=== PATIENT | female | born 1945 | race Caucasian/White ===

== ENCOUNTER → 2017-01-29 | Outpatient (CLI) | payer OTHER | LOC: BMCIMAGING 08:44 | PROVIDERS: ATTEND Internal Medicine | DX: Z12.31 Encounter for screening mammogram for malignant neoplasm of breast (principal) | CPT/HCPCS: G0202 ==

== ENCOUNTER → 2017-06-27 | Outpatient (CLI) | payer OTHER | LOC: FIMAGING 14:27 | PROVIDERS: ATTEND Internal Medicine | DX: M50.321 Other cervical disc degeneration at C4-C5 level (principal); M46.92 Unspecified inflammatory spondylopathy, cervical region; M48.02 Spinal stenosis, cervical region; M48.03 Spinal stenosis, cervicothoracic region; M51.34 Other intervertebral disc degeneration, thoracic region; M46.94 Unspecified inflammatory spondylopathy, thoracic region; M48.04 Spinal stenosis, thoracic region ==

== ENCOUNTER 2017-07-05 14:04 | Day surgery (SDC) | payer OTHER ==
[2017-07-05] MEDS ORDERED: LIDOCAINE 1% 2 ML INJ ID PRN (14:22)
[2017-07-05] MEDS ORDERED: LR 1,000 ML IV ONE (14:22)
[2017-07-05] MEDS ORDERED: BUPIVACAINE 0.25% 30 ML SDV ONE (15:15)
[2017-07-05] MEDS ORDERED: BACITRACIN ZINC 14.2 GM OINTTUBE TP ONE (15:16)
[2017-07-05] MEDS ORDERED: MIDAZOLAM 2 MG/2 ML VIAL IVP ONE (15:32)
--- NOTE | 2017-07-05 15:35 | PDANEPAE ---
ANE History of Present Illness 71 yo for temperal art bx ANE Past Medical History - Cardiovascular History Hx Hypertension: No Hx Arrhythmias: No Hx Chest Pain: No Hx Coronary Artery / Peripheral Vascular Disease: No Hx CHF / Valvular Disease: No Hx Palpitations: No - Pulmonary History Hx COPD: No Hx Asthma/Reactive Airway Disease: No Hx Recent Upper Respiratory Infection: No Hx Oxygen in Use at Home: No Hx Sleep Apnea: Yes Sleep Apnea Screening Result - Last Documented: Positive - Neurologic History Hx Cerebrovascular Accident: No Hx Seizures: No Hx Dementia: No - Endocrine History Hx Diabetes: No - Renal History Hx Renal Disorders: No - Liver History Hx Hepatic Disorders: No - Neurological & Psychiatric Hx Hx Neurological and Psychiatric Disorders: No - Cancer History Hx Cancer: No - Congenital Disorder History Hx Congenital Disorders: No - GI History Hx Gastrointestinal Disorders: No - Other Health History Other Health History: NA - Chronic Pain History Chronic Pain: No - Surgical History Prior Surgeries: L cataract 2017. L meniscus repair 2009. R cataract 2010. Appendectomy as child ANE Review of Systems Review of Systems: - Exercise capacity METS (RN): 4 METS ANE Patient History - Allergies Allergies/Adverse Reactions: No Known Allergies Allergy (Unverified 07/05/17 14:36) - Home Medications Home medications: home medication list seen and reviewed Home Medications: Aspirin 81mg (*) 07/05/17 [Last Taken 07/04/17] Atorvastatin Calcium 07/05/17 [Last Taken 07/03/17] Flexeril 07/05/17 [Last Taken 07/04/17] Gabapentin 07/05/17 [Last Taken 07/05/17] Prednisone 07/05/17 [Last Taken 07/05/17] buPROPion 07/05/17 [Last Taken 07/04/17] - NPO status NPO Status: no food or drink >8 hours NPO Since - Liquids (Date): 07/05/17 NPO Since - Liquids (Time): 06:00 NPO Since - Solids (Date): 07/04/17 NPO Since - Solids (Time): 18:00 - Anes Hx Anes Hx: no prior problems - Smoking Hx Smoking Status: Never smoked - Family Anes Hx Family Hx Anesthesia Complications: NA ANE Labs/Vital Signs - Vital Signs Blood Pressure: 150/95 Heart Rate: 76 Respiratory Rate: 16 O2 Sat (%): 94 Height: 5 ft 3 in Weight: 68.039 kg ANE Physical Exam - Airway Neck exam: FROM Mallampati Score: Class 2 Mouth exam: normal dental/mouth exam - Pulmonary Pulmonary: no respiratory distress - Cardiovascular Cardiovascular: regular rate and rhythym - ASA Status ASA Status: II ANE Anesthesia Plan Anesthesia Plan: GA w LMA
[2017-07-05] MEDS ORDERED: PROPOFOL/EMULSION 500 MG/50 ML BOTTLE IV ONE (15:53)
--- NOTE | 2017-07-05 15:53 | PDHPUP ---
History & Physical Update H&P update statement: This history and physical update is based on an assessment of the patient which was completed after admission or registration (within 24 hours), but prior to the surgery/procedure. H&P update: H&P reviewed & patient examined, no change in patient's condition since H&P completed
[2017-07-05] MEDS ORDERED: fentaNYL 100 MCG/2 ML INJ ONE (15:56)
[2017-07-05] MEDS ORDERED: fentaNYL 100 MCG/2 ML INJ IVP PRN (17:12)
[2017-07-05] MEDS ORDERED: NALOXONE HCL 0.4 MG/ML INJ IVP PRN (17:12)
[2017-07-05] MEDS ORDERED: HYDROCODONE/APAP 5/325 TAB PO PRN (17:12)
[2017-07-05] MEDS ORDERED: OXYCODONE/APAP 5/325 TAB PO PRN (17:12)
--- NOTE | 2017-07-05 17:12 | POSTOPPROG ---
Post Op Note Date of Operation: 07/05/17 Surgeon: Gary Urbina Anesthesia: GET(General Endotracheal) Pre-op Diagnosis: Headache Post-op Diagnosis: Headache Indication: Headache Procedure: Left temporal artery biopsy Findings: Left temporal artery Inf/Abcess present in the surg proc area at time of surgery?: No Depth: Deep Incisional (Fascial) EBL: Minimal Complications: NONE Specimen(s): NONE
--- NOTE | 2017-07-05 17:13 | POSTANESTH ---
Post Anesthetic Evaluation Cardiovascular Status: Normal, Stable Respiratory Status: Normal, Stable Level of Consciousness/Mental Status: Can Participate in Eval Pain Control: Adequate, Prn Tx Ordered Nausea/Vomiting Control: Adequate, Prn Tx Ordered Complications Possibly Related to Anesthesia: None Noted
[2017-07-05 17:51] VITALS: BP 149/75; PULSE 65; RESP 16; TEMP 97.7; O2SAT 97
--- NOTE | 2017-07-06 03:37 | GOP ---
[f rep st] OPERATIVE REPORT DATE OF OPERATION: 07/05/2017 SURGEON: Gary Urbina MD ANESTHESIA: General. PREOPERATIVE DIAGNOSIS: Headache. POSTOPERATIVE DIAGNOSIS: Headache. PROCEDURE PERFORMED: Left temporal artery biopsy. FINDINGS: Left temporal vessels, unremarkable. SPECIMENS: Two temporal vessels, temporal artery #1 consistent with artery. ESTIMATED BLOOD LOSS: Minimal. 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 In order to achieve a definitive diagnosis, she was determined to be an appropriate candidate for the above-stated procedure. The risks, benefits , and alternatives to the procedure were explained at length to the patient, who stated she understood and wished to go forward with the procedure. DESCRIPTION OF PROCEDURE: Patient was brought to the operating room by Anesthesiology and placed on the operating table. Once the appropriate level of anesthesia was achieved, the patient was prepped and draped in the usual fashion. A Doppler ultrasound was then used starting at the anterior superior preauricular skin at the left. Arterial signal was found and traced superiorly with a marking pen. The hair was divided over the site of marking and the 4 cm skin incision was created with a 15 blade. Dissection continued with Bovie electrocautery and blunt dissection. Following blunt dissection, vessel consistent with artery was localized and dissected free from surrounding tissues using blunt dissection. Once it was elevated off the base tissues, small clip senior linux systems administrator was used to place a clip superiorly. Another clip was placed inferior to this and scissors were used to divide the artery. This vessel was then traced inferiorly and dissected free of surrounding tissues. It was again clipped inferiorly and resected with a scissor. A 2nd vessel was seen just beneath this and it was dissected free, clipped superiorly and inferiorly, and then resected with scissors. These were passed off for permanent specimens. This surgical bed was irrigated with copious normal saline. It was inspected for bleeding; none was found. 3-0 Vicryl buried interrupted sutures were used to reapproximate the subcutaneous tissues. The skin was reapproximated using 5-0 nylon suture in a running locking fashion. The patient tolerated the procedure well and was extubated in the operating room prior to being transferred in good condition to the postanesthesia care unit. COMPLICATIONS: None. /[id number]/MODL MTDD
== END 2017-07-05 18:10 | disposition home or self-care (01) ==
LOC: FSGY 14:04
PROVIDERS: ATTEND Otolaryngology
PROC: 03BT0ZX Excision of Left Temporal Artery, Open Approach, Diagnostic (ICD-10-PCS; principal; 2017-07-05 16:00)
DX: R51 Headache (principal); F32.9 Major depressive disorder, single episode, unspecified; F41.9 Anxiety disorder, unspecified; R73.03 Prediabetes; E78.5 Hyperlipidemia, unspecified; E55.9 Vitamin D deficiency, unspecified; G47.33 Obstructive sleep apnea (adult) (pediatric); Z79.82 Long term (current) use of aspirin
CPT/HCPCS: J0171; J2250; J2704; J3010

== ENCOUNTER 2018-06-20 14:38 | Day surgery (SDC) | payer OTHER ==
[2018-06-20] MEDS ORDERED: ceFAZolin 2 GM/DEXTROSE 100 ML IV ONE (14:48)
[2018-06-20] MEDS ORDERED: LR 1,000 ML IV ONE (14:49)
[2018-06-20] MEDS ORDERED: BUPIVACAINE 0.5% 30 ML SDV ONE (16:34)
[2018-06-20] MEDS ORDERED: MIDAZOLAM 2 MG/2 ML VIAL ONE (17:10)
[2018-06-20] MEDS ORDERED: PROPOFOL/EMULSION 500 MG/50 ML BOTTLE IV ONE ×2 (17:13)
[2018-06-20] MEDS ORDERED: BUPIVACAINE/EPI 0.5% 30 ML SDV ONE (17:25)
[2018-06-20] MEDS ORDERED: fentaNYL 100 MCG/2 ML INJ ONE (17:44)
[2018-06-20] MEDS ORDERED: ONDANSETRON 4 MG/2 ML VIAL IVP PRN (17:57)
[2018-06-20] MEDS ORDERED: ALBUTEROL 3 ML DEYVIAL IH PRN (17:57)
[2018-06-20] MEDS ORDERED: NALOXONE HCL 0.4 MG/ML INJ IVP PRN (17:57)
[2018-06-20] MEDS ORDERED: fentaNYL 100 MCG/2 ML INJ IVP PRN (17:57)
[2018-06-20] MEDS ORDERED: DEXAMETHASONE 4 MG/ML VIAL IVP PRN (17:57)
[2018-06-20] MEDS ORDERED: ACETAMINOPHEN 500 MG TAB PO PRN (17:57)
[2018-06-20] MEDS ORDERED: HYDROmorphONE/DILAUDID 2 MG/ML INJ IVP PRN (17:57)
[2018-06-20] MEDS ORDERED: MIDAZOLAM 2 MG/2 ML VIAL IVP ONE (17:57)
--- NOTE | 2018-06-20 17:58 | PDANEPAE ---
ANE History of Present Illness Left 3, 4, 5 Trigger Finger ANE Past Medical History - Cardiovascular History Hx Hypertension: No Hx Arrhythmias: No Hx Chest Pain: No Hx Coronary Artery / Peripheral Vascular Disease: No Hx CHF / Valvular Disease: No Hx Palpitations: No - Pulmonary History Hx COPD: No Hx Asthma/Reactive Airway Disease: No Hx Recent Upper Respiratory Infection: No Hx Oxygen in Use at Home: No Hx Sleep Apnea: No Sleep Apnea Screening Result - Last Documented: Negative - Neurologic History Hx Cerebrovascular Accident: No Hx Seizures: No Hx Dementia: No - Endocrine History Hx Diabetes: No - Renal History Hx Renal Disorders: No - Liver History Hx Hepatic Disorders: No - Neurological & Psychiatric Hx Hx Neurological and Psychiatric Disorders: Yes Neurological / Psychiatric History Comment: tremor, hydrocephalus - Cancer History Hx Cancer: No - Congenital Disorder History Hx Congenital Disorders: No - GI History Hx Gastrointestinal Disorders: No - Other Health History Other Health History: fell, skin tear left upper arm. very fragile skin. incison and lump to left side of head. bruises easily. Hx of significant falls - Chronic Pain History Chronic Pain: Yes (right shoulder,tore bisep right arm) - Surgical History Prior Surgeries: L cataract 2017. L meniscus repair 2009. R cataract 2010. Appendectomy as child. shunt for hydrocephalus ANE Review of Systems Review of Systems: - Exercise capacity METS (RN): 2 METS ANE Patient History - Allergies Allergies/Adverse Reactions: No Known Allergies Allergy (Verified 06/19/18 12:08) - Home Medications Home Medications: Divalproex 06/19/18 [Last Taken 06/20/18 06:00] Xarelto 06/19/18 [Last Taken 06/15/18] Fiber 06/20/18 [Last Taken 06/20/18 06:00] Multivitamins 06/20/18 [Last Taken 06/20/18 06:00] - NPO status NPO Since - Liquids (Date): 06/20/18 NPO Since - Liquids (Time): 08:00 NPO Since - Solids (Date): 06/20/18 NPO Since - Solids (Time): 08:00 - Smoking Hx Smoking Status: Never smoked - Family Anes Hx Family Hx Anesthesia Complications: none ANE Labs/Vital Signs - Vital Signs Blood Pressure: 140/81 Heart Rate: 68 Respiratory Rate: 18 O2 Sat (%): 94 Height: 162.56 cm Weight: 65.771 kg ANE Physical Exam - Airway Neck exam: FROM Mallampati Score: Class 2 Mouth exam: normal dental/mouth exam - Pulmonary Pulmonary: clear to auscultation - Cardiovascular Cardiovascular: regular rate and rhythym - ASA Status ASA Status: III ANE Anesthesia Plan Anesthesia Plan: GA with mask
[2018-06-20] MEDS ORDERED: ONDANSETRON 4 MG/2 ML VIAL ONE (18:22)
--- NOTE | 2018-06-20 18:45 | POSTANESTH ---
Post Anesthetic Evaluation Cardiovascular Status: Normal, Stable Respiratory Status: Normal, Stable Level of Consciousness/Mental Status: Can Participate in Eval, Alert and Oriented Pain Control: Adequate, Prn Tx Ordered Nausea/Vomiting Control: Adequate, Prn Tx Ordered Complications Possibly Related to Anesthesia: None Noted
[2018-06-20] MEDS ORDERED: ACETAMINOPHEN 500 MG TAB ONE (19:50)
[2018-06-20 20:09] VITALS: BP 134/76
--- NOTE | 2018-06-22 02:50 | GOP ---
DATE OF OPERATION: 06/20/2018 SURGEON: Nestor Jo MD ANESTHESIA: Local performed by or and MAC anesthesia. PREOPERATIVE DIAGNOSIS: 1. Left small finger chronic trigger finger. 2. Left ring finger chronic trigger finger. 3. Left long finger chronic trigger finger. 4. Contracture of the metacarpophalangeal joint, left small finger. 5. Contracture of the metacarpophalangeal joint left ring finger. 6. Contracture of the metacarpophalangeal joint left long finger. 7. Contracture of the proximal interphalangeal joint left small finger. 8. Contracture of the proximal interphalangeal joint left ring finger. 9. Contracture of the proximal interphalangeal joint left long finger. POSTOPERATIVE DIAGNOSIS: 1. Left small finger chronic trigger finger. 2. Left ring finger chronic trigger finger. 3. Left long finger chronic trigger finger. 4. Contracture of the metacarpophalangeal joint, left small finger. 5. Contracture of the metacarpophalangeal joint left ring finger. 6. Contracture of the metacarpophalangeal joint left long finger. 7. Contracture of the proximal interphalangeal joint left small finger. 8. Contracture of the proximal interphalangeal joint left ring finger. 9. Contracture of the proximal interphalangeal joint left long finger. PROCEDURE PERFORMED: 1. Left small finger trigger finger release. 2. Left ring finger trigger finger release. 3. Left long finger trigger finger release. 4. Left small finger manipulation under anesthesia metacarpophalangeal joint. 5. Left ring finger manipulation under anesthesia metacarpophalangeal joint. 6. Left long finger manipulation under anesthesia metacarpophalangeal joint. 7. Left small finger manipulation under anesthesia proximal interphalangeal joint. 8. Left ring finger manipulation under anesthesia proximal interphalangeal joint. 9. Left long finger manipulation under anesthesia proximal interphalangeal joint. FINDINGS: ESTIMATED BLOOD LOSS: Less than 5 cc. 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 At some point during her ICU stay she began having triggering of the left long finger which eventually locked. Surgical treatment was not attempted at that time. The triggering and eventual locking of the digits then progressed to the ring finger and small finger. When I saw her in the clinic those 3 digits were locked in flexion with the fingers down to the palm. I was barely able to open up her hand, which caused her great pain. She was beginning to have skin maceration in between her digits and on her palm. At the time, I felt that release of the chronic trigger fingers and contractures would be important for her function and rehabilitation from her brain infection as well as for hygiene. On the operative day her contractures had actually worsened and her hands were completely stuck down on her palm and could not be opened. I discussed the risks and benefits of surgery with her and her . The risks include pain , bleeding, infection, persistent contracture, stiffness, weakness, wound healing complications, recurrent triggering, need for further surgery. They understood these risks and wished to proceed. DESCRIPTION OF PROCEDURE: The patient was seen in the preoperative holding area. She was given the opportunity to ask any questions. All her questions were answered. Consent was signed. Surgical site was marked. She was transferred to the operative suite. Care was taken to pad all bony prominences on the gurney. Time-out was called including surgical and anesthesia teams confirming the surgical site and procedure performed. 2 g of Ancef was given prior to incision. The left upper extremity was prepped and draped in the usual sterile fashion. Prior to prepping and draping, I performed anesthesia with Marcaine with epinephrine. She was then given sedation by the anesthesia team. Her left upper extremity was prepped and draped in the usual sterile fashion. It was quite difficult to open up her hand. They were quite contracted. I basically held her hand against the lead hand and I used an Esmarch to hold the fingers open and an neurosurgical physician assistant to hold the fingers open. I first proceeded with the small finger. I made an oblique incision in the skin crease. A standard incision for trigger finger release. I identified the flexor tendon sheath, which was very scarred down. The tendons were very tight. I then opened up the flexor tendon sheath first with a knife and then with the scissor. I opened up the entire A1 ga, any other palmar fascia in the palm and right up to the A2 ga. Then I very slowly tried to extend the digit. At this point, I was able to extend the digit; however, I had to do this carefully with progressive manipulation of the first PIP joint and then the MP joint. I slowly manipulated it until I was able to achieve full extension. I then proceeded with the ring finger performing the same incision, the same release of the A1 ga with the same manipulation under anesthesia of the PIP joint and then the MP joint. I then proceeded to the long finger, making the same incision for trigger finger release, performing the same release of the A1 ga and then performing the same manipulation under anesthesia first of the PIP joint and then the gentle manipulation of the MP joint. I was able to achieve full extension of all of the digits. Again her hand was quite tight and springy. I then irrigated copiously with sterile saline. I closed the incisions with 4-0 nylon horizontal mattresses, then a sterile dressing was applied. A dorsal blocking splint in full extension was applied. Patient tolerated the procedure well, taken to the PACU in stable condition. POSTOP CONDITION: Stable. POSTOPERATIVE PLAN: I will the patient see a hand therapist to make a splint to maintain extension and maintain our repair. /[id number]/MODL MTDD
== END 2018-06-20 20:44 | disposition home or self-care (01) ==
LOC: FSGY 14:38
PROVIDERS: ATTEND Orthopaedic Surgery Hand Surgery
PROC: 0RNX0ZZ Release Left Finger Phalangeal Joint, Open Approach (ICD-10-PCS; principal; 2018-06-20 16:45)
PROC: 0LN80ZZ Release Left Hand Tendon, Open Approach (ICD-10-PCS; principal; 2018-06-20 16:45)
PROC: 0RNV0ZZ Release Left Metacarpophalangeal Joint, Open Approach (ICD-10-PCS; principal; 2018-06-20 16:45)
DX: M65.352 Trigger finger, left little finger (principal); M65.332 Trigger finger, left middle finger; M65.342 Trigger finger, left ring finger; M24.542 Contracture, left hand; Z86.718 Personal history of other venous thrombosis and embolism; R55 Syncope and collapse; M31.6 Other giant cell arteritis; Z87.19 Personal history of other diseases of the digestive system
CPT/HCPCS: J0690; J2250; J2405; J2704; J3010